=== PATIENT | female | born 1945 | race Caucasian/White ===

== ENCOUNTER 2017-01-25 06:50 | Day surgery (SDC) | payer MEDICARE, BC ==
--- NOTE | 2017-01-25 06:21 | History and Physical Report ---
DATE: 01/25/2017. CHIEF COMPLAINT: This is a patient with a very complicated intractable pain pattern. HISTORY OF PRESENT ILLNESS: She has an implanted spinal opioid infusion system with hydromorphone. Over the last number of refills and reprogrammings, battery depletion has been identified. She is here on an outpatient basis for replacement of the battery. PAST MEDICAL HISTORY: Hypertension. PAST SURGICAL HISTORY: Pump implant, multiple debridements of decubitus ulcer. MEDICATIONS ON ADMISSION: To be provided. ALLERGIES: Sulfa, Demerol, iodine. SOCIAL HISTORY: Caffeine. FAMILY HISTORY: Asthma, diabetes, coronary artery disease, hypertension, cancer. PHYSICAL EXAMINATION: General: Height is 5 feet, 4 inches. Weight is 250 pounds. Vital Signs: Unavailable. HEENT: Within normal limits. Lungs: Clear. Heart: Regular rate and rhythm. Abdomen: Nontender. Musculoskeletal: Examination shows the patient is currently in a wheelchair. The pump is in the posterior gluteal margin at the right and is intact with respect to the incision. Midline catheter is intact. Sensory jaime appear to be intact. Neurologic: Cranial nerves are intact. IMPRESSION: 1. INTRACTABLE LUMBAR RADICULITIS, ICD-10 CODE M54.16 AND M54.17. 2. IMPLANTED SPINAL OPIOID INFUSION SYSTEM WITH HYDROMORPHONE WITH BATTERY DEPLETION. PLAN: The patient is here for replacement of the battery on an outpatient basis. The patient understands the potential risks, side effects, and complications. No changes will be made to the current infusion parameters. MICHELLE CHAVEZ D.O. Date & Time JOB NUMBER: [id number] cc: Eugene Elizondo
[~2017-01-25 06:50] MED LIST: ACETAMINOPHEN 1,000 MG/100 ML BTL IV ONE; CEFAZOLIN 2 Gram 2 GM/50 ML BAG IVPB ONE; FAMOTIDINE 20MG TABLET PO ONE; HYDROMORPHONE HCL IV ONE; HYDROMORPHONE HCL/PF 0.002 MG in 0.9 % SODIUM CHLORIDE 10ML VIA 0.998 ML IVP ONE; MECLIZINE 25 MG TABLET PO ONE; METOCLOPRAMIDE 10 MG TABLET PO ONE; SODIUM CHLORIDE 0.9% IV ONE
[2017-01-25] MEDS ORDERED: CEFAZOLIN 1G VIAL IM ONE (14:00)
[2017-01-25] MEDS ORDERED: 0.9 % SODIUM CHLORIDE 10 ML VIAL IVP ONE (14:00)
[2017-01-25] MEDS ORDERED: LIDOCAINE 1% W/EPI 1:200,000 MPF 30ML SQ ONE (14:00)
[2017-01-25] MEDS ORDERED: BUPIVACAINE 0.25% W/EPI MPF 30ML VIAL IVP ONE (14:00)
[2017-01-25] MEDS ORDERED: HYDROCODONE/APAP 7.5/325MG TABLET PO ONE (14:02)
[2017-01-25] MEDS ORDERED: MIDAZOLAM HCL 2MG/2ML VIAL IV ONE (16:47)
[2017-01-25] MEDS ORDERED: FENTANYL PF 100MCG/2ML VIAL IV ONE (16:47)
[2017-01-25] MEDS ORDERED: PROPOFOL 10 MG/ML VIAL IV ONE (16:47)
[2017-01-25] MEDS ORDERED: LIDOCAINE 2% MDV (20MG/ML) 20ML VIAL IV ONE (16:47)
--- NOTE | 2017-01-26 05:30 | Operative Note - [place] ---
DATE OF SURGERY: 01/25/2017. PREOPERATIVE DIAGNOSIS: 1. INTRACTABLE LUMBAR RADICULITIS, ICD-10 CODE M54.16 AND M54.17. 2. IMPLANTED SPINAL OPIOID INFUSION SYSTEM WITH HYDROMORPHONE. POSTOPERATIVE DIAGNOSIS: 1. INTRACTABLE LUMBAR RADICULITIS, ICD-10 CODE M54.16 AND M54.17. 2. IMPLANTED SPINAL OPIOID INFUSION SYSTEM WITH HYDROMORPHONE. OPERATION: 1. INCISION, SUBCUTANEOUS DISSECTION, AND REMOVAL AND REPLACEMENT OF PROGRAMMABLE PUMP AT RIGHT POSTERIOR GLUTEAL MARGIN; MEDTRONIC 20 ML. 2. REVISION AND RESECTION OF SPINAL CATHETER AND POUCH. 3. PLACEMENT OF 24-GAUGE CRUZ NEEDLE INTO ACCESS PORT WITH ASPIRATION OF 1.0 ML OF CSF PLUS OPIOID, CLEARING CATHETER OF OPIOID AND CSF MIXTURE. 4. SALINE INJECTION THROUGH ACCESS PORT ENSURING FUNCTIONALITY AND PATENCY OF CATHETER. 5. PLACEMENT OF PUMP WITH INTERFACE TO NEW REVISED CATHETER INTO POUCH. CLOSURE OF INCISIONS WITH VICRYL TO THE FASCIA AND RUNNING SUBCUTICULAR VICRYL TO THE SKIN. 6. PROGRAMMING OF PUMP TO DELIVER BY CONTINUOUS INFUSION HYDROMORPHONE AT 5.5 MG PER DAY. SURGEON: Michael Weller D.O. ANESTHESIA: Local sedation. ANESTHESIA PROVIDER: Demetrius Garcia CRNA INDICATION: This patient presents with a history of intractable lumbar radiculitis. A programmable pump infusing hydromorphone is in place. Recent studies and diagnostics have confirmed battery depletion. She is here for replacement of battery. PROCEDURE: Intravenous line, vital signs, monitoring, and IV sedation. The patient was prepped and draped with sterile technique by Anesthesia. The patient was positioned prone. At the right posterior gluteal margin at the pump pouch site, the skin was infiltrated. An incision was made, and subcutaneous dissection was conducted to open the pump pouch. The pouch was then exteriorized and from the indwelling catheter. A new pump was placed on the field prefilled with hydromorphone 25 mg per mL. The indwelling catheter was then resected to remove it from scar tissue. At that point a significant kink was identified. Catheter resection was then performed to remove the kinked, bent catheter. The resected catheter with connection was then interfaced to the new pump filled with hydromorphone. Antibiotic irrigation. Bovie for hemostasis. The pump was placed into the existing pouch and secured to the fascia with a nonabsorbable suture. The pump was revised to accommodate the new pump by opening the pouch at its superior and lateral edges. Antibiotic irrigation and Bovie for hemostasis. With the pump into the pouch and interfaced to the revised catheter, a 24-gauge Cruz needle was inserted into the access port, and 1.0 mL of catheter contents was aspirated, clearing the catheter of opioid and CSF mixture. Because of contrast allergies , saline was injected through the access port into the catheter confirming patency and functionality. The catheter tip was identified under imaging at T- 8 which was its original placement site. The incision was then closed with Vicryl to the fascia and running subcuticular Vicryl for the skin. A Dermabond closure system was placed. The pump was programmed back to its original parameters by simple continuous infusion of hydromorphone at 5.5 mg a day. She was transported to the recovery room stable, showing no side effects from the procedure or the sedation. When fully awake and alert, she was prepared for discharge. DISCHARGE INSTRUCTIONS: 1. THE SITES WILL REMAIN CLEAN AND DRY, ALTHOUGH THE DERMABOND WILL ALLOW SHOWERING. 2. STANDARD MEDICATIONS WILL BE RESUMED INCLUDING LEVAQUIN, THE ANTIBIOTIC, 500 MG ONCE A DAY FOR 14 DAYS. IF SHE DOES NOT TOLERATE THE ANTIBIOTIC, SHE SHOULD CONTACT THE CLINIC FOR SUBSTITUTION. 3. SPINAL OPIOID SIDE EFFECTS INCLUDING RESPIRATORY DEPRESSION, NAUSEA, VOMITING, CONSTIPATION, AND RASH HAVE ALL BEEN DISCUSSED AND REVIEWED. 4. THE OFFICE IS TO CONTACT THE PATIENT IN THREE TO FIVE DAYS TO SET UP AN APPOINTMENT IN FIVE TO SEVEN DAYS TO EVALUATE THE SITES. UNTIL THEN, SHE SHOULD KEEP HER ACTIVITY LEVELS LOW. SHOULD THERE BE ANY PROBLEMS, SHE SHOULD CONTACT THE CLINIC OR GO TO A LOCAL EMERGENCY ROOM. Nelson WELLER D.O. Date & Time JOB NUMBER: [id number] cc: Braydon Ghosh
== END 2017-01-25 10:05 | disposition home or self-care (01) ==
LOC: SUR 06:50
PROVIDERS: ATTEND Pain Medicine Interventional Pain Medicine
DX: T85.695A Other mechanical complication of other nervous system device, implant or graft, initial encounter (principal); M54.16 Radiculopathy, lumbar region; M54.17 Radiculopathy, lumbosacral region; I10 Essential (primary) hypertension
CPT/HCPCS: 62362; 00300; 62367; 36416; 82948; 85002; J1170; J3010; J0690; C1755